=== PATIENT | female | born 1960 | race Caucasian/White ===

== ENCOUNTER 2020-06-22 13:34 | Emergency (ER) | payer OTHER, SELFPAY ==
--- NOTE | ~2020-06-22 | XR_ITS ---
EXAMINATION: XR elbow LT min 3V EXAM DATE: 06/22/2020 14:01 INDICATION: Initial encounter following injury, with pain of the left elbow. TECHNIQUE: Frontal, lateral, oblique projections left elbow. There is no prior study for comparison . FINDINGS: There is acute closed posttraumatic supracondylar fracture with over 1 cm of displacement. No evidence of dislocation at the elbow joint. No evidence of radial or ulnar fractures. IMPRESSION: Acute left supracondylar fracture with displacement. Reviewed, dictated and finalized at location A. [employer] R[employer] CLERK
[2020-06-22 13:33] VITALS: BP 135/106; PULSE 93; RESP 22; TEMP 36.6; O2SAT 100
--- NOTE | 2020-06-22 14:04 | ED.FALL ---
HPI - Fall General Chief Complaint: Fall <Danya Cooley PA-C - Last Filed: 06/22/20 16:02> Stated Complaint: FALL/L ELBOW PAIN <Danya Cooley PA-C - Last Filed: 06/22/20 16:02> Time Seen by Provider: 06/22/20 13:43 <Danya Cooley PA-C - Last Filed: 06/22/20 16:02> Source: patient and family <Danya Cooley PA-C - Last Filed: 06/22/20 16:02> Mode of arrival: EMS <Danya Cooley PA-C - Last Filed: 06/22/20 16:02> Limitations: no limitations <Danya Cooley PA-C - Last Filed: 06/22/20 16:02> History of Present Illness HPI Narrative: This is a 60-year-old female that presents the emergency department after a fall 4 days ago with left elbow pain and swelling. Reports she was coming back from the restroom and tripped. Reports landing on the left elbow. Denies hitting her head or loss of consciousness. 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 Denies prodromal symptoms, other injuries, or numbness. <Danya Cooley PA-C - Last Filed: 06/22/20 16:02> Related Data Allergies/Adverse Reactions: Allergies Allergy/AdvReac Type Severity Reaction Status Date / Time No Known Allergies Allergy Verified 06/22/20 15:06 <Danya Cooley PA-C - Last Filed: 06/22/20 16:02> Review of Systems Review of Systems: Narrative: CONSTITUTIONAL: Denies fever MUSCULOSKELETAL: Reports joint pain, and myalgia. NEUROLOGIC: Denies numbness <Danya Cooley PA-C - Last Filed: 06/22/20 16:02> All systems reviewed & are unremarkable except as noted in HPI and below <Danya Cooley PA-C - Last Filed: 06/22/20 16:02> [facility] Past Medical History Medical History: Medical History (Updated 06/22/20 @ 16:00 by Danya Cooley PA-C) History of depression History of gastroesophageal reflux (GERD) History of Fillmore's disease History of hypertension <Danya Cooley PA-C - Last Filed: 06/22/20 16:02> Social History Social History: Social History (Updated 06/22/20 @ 14:09 by Danya Cooley PA-C) Alcohol intake: current <Danya Cooley PA-C - Last Filed: 06/22/20 16:02> Exam Narrative: Exam Narrative: GENERAL: Well-appearing, well-nourished, and in no acute distress. HEAD: Normocephalic, atraumatic. EYES: PERRLA and EOMI. ENT: Nares clear, no rhinorrhea or epistaxis. Mucous membranes moist. Oropharynx without tonsillar hypertrophy exudate or other lesions. Bilateral TMs pearly tompkins non-bulging NECK: Supple. No adenopathy or masses. No midline cervical spine tenderness CHEST: Clear to auscultation. No respiratory distress. No wheezes rales or rhonchi HEART: Regular rate and rhythm. No murmur heard. Normal peripheral pulses. BACK: No midline thoracic or lumbar spine tenderness EXTREMITIES: Normal range of motion, except decreased range of motion in the left elbow. Moderate edema and bruising to the left elbow. Normal sensation. Normal radial pulses SKIN: Warm, dry, no rash. NEURO: No focal deficits. Alert and oriented x3. Cranial nerves II through XII grossly intact PSYCH: Normal mood and affect <Danya Cooley PA-C - Last Filed: 06/22/20 16:02> Course ASSISTANT BASEBALL COACH/PA Physician Supervision For this patient encounter, I reviewed the ASSISTANT BASEBALL COACH or PA documentation, treatment plan, and medical decision making; and I had [id number] time with this patient. <Holly Mullins MD - Last Filed: 06/22/20 16:50> Consultations Consultation #1: Discussed with Dr. Wagner, who recommends applying splint and he will follow up with the patient. <Holly Mullins MD - Last Filed: 06/22/20 16:50> Date: 06/22/20 <Holly Mullins MD - Last Filed: 06/22/20 16:50> Time: 15:10 <Holly Mullins MD - Last Filed: 06/22/20 16:50> Vital Signs Vital signs: Vital Signs Temperature 36.6 C 06/22/20 13:33 Pulse Rate 93 06/22/20 13:33 Respiratory Rate 22 H 06/22/20 13:33 Blood Pressure 135/106 H 06/22/20 13:33 Pulse O
[2020-06-22 16:13] VITALS: BP 121/99; PULSE 78; RESP 16; O2SAT 99
== END 2020-06-22 16:14 | disposition home or self-care (01) ==
PROVIDERS: Emergency Provider Emergency Medicine; PCP Psychiatry & Neurology Neurology
DX: S42.412A Displaced simple supracondylar fracture without intercondylar fracture of left humerus, initial encounter for closed fracture (principal); F32.9 Major depressive disorder, single episode, unspecified; K21.9 Gastro-esophageal reflux disease without esophagitis; G10 Huntington's disease; I10 Essential (primary) hypertension; W01.0XXA Fall on same level from slipping, tripping and stumbling without subsequent striking against object, initial encounter
CPT/HCPCS: 29105; 73080; 96365; 99284; J0131

== ENCOUNTER 2020-11-17 11:57 | Emergency (ER) | payer OTHER, SELFPAY ==
[2020-11-17] VITALS (17 sets, daily range): BP systolic 127–156; BP diastolic 65–110; PULSE 66–80; RESP 13–20; TEMP 36.7; O2SAT 97–99
--- NOTE | ~2020-11-17 | CT_ITS ---
EXAMINATION: CT lumbar spine wo john EXAM DATE: 11/17/2020 14:49 INDICATION: Age-indeterminate compression fracture on x-ray. TECHNIQUE: Spiral CT lumbar spine was performed without contrast. Axial, coronal and sagittal images of the lumbar spine were reviewed. The dose-length product (DLP) for this examination was 355.62 mGy- cm. The exposure was tailored according to patient size (auto mA exposure control), and iterative re construction (ASIR) was used as additional dose reduction technique. There is no prior study for yomaira dawkins. FINDINGS: There is mild to moderate anterior wedging of L2, a chronic burst fracture (mild loss of the posterio r vertebral body height as well). Only the inferior margin of T11 was imaged, is unremarkable. Mild t o moderate lumbar facet arthropathy. Mild to moderate lower lumbar neural foraminal stenosis. Only mi ld central canal stenosis. Sacroiliac joints are intact. There is no evidence of acute lumbar fractur e. There is no disc space widening or traumatic vertebral body subluxation suspected. Paraspinal so ft tissue is unremarkable. A detailed level by level evaluation of spondylosis can be added as addend um if requested. IMPRESSION: 1. L2 chronic mild to moderate burst fracture. 2. Mild to moderate lumbar spondylosis. 3. T11 not imaged. Reviewed, dictated and finalized at location A.
--- NOTE | ~2020-11-17 | XR_ITS ---
XR lumbar spine min 4V 11/17/2020 14:14 Indication: Low back pain Procedure: 5 views lumbar spine Comparison: No prior studies for comparison. Findings: There is an age-indeterminate superior endplate compression fracture of L2 with approximate ly 30% loss of vertebral body height. There is mild superior endplate compression fracture of T11 wit h approximately 10% loss of vertebral body height. There is mild levoscoliosis. No spondylolisthesis. There is mild multilevel disc narrowing. There is mild lower lumbar facet hypertrophy. Impression: 1: Age-indeterminate superior plate compression fractures of T11 and L2. 2: Mild lumbar spondylosis with levoscoliosis. Reviewed, dictated and finalized at location B. Impression: 1: Age-indeterminate superior plate compression fractures of T11 and L2. 2: Mild lumbar spondylosis with levoscoliosis.
--- NOTE | 2020-11-17 13:50 | ED.BACK ---
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 Complains of atraumatic low back pain for several days notes that she was recently able to graduate from a wheelchair and start doing some walking and therapy and this was shortly before her back started hurting She does not have a fever, she does not have any urinary symptoms, she does not have any bowel or bladder symptoms, she is not have any new numbness or worsening weakness Related Data Home Medications Medication Instructions Recorded Confirmed citalopram 20 mg PO DAILY 11/17/20 potassium chloride 20 meq PO DAILY 11/17/20 propranolol 80 mg PO DAILY 11/17/20 Allergies Allergy/AdvReac Type Severity Reaction Status Date / Time No Known Allergies Allergy Verified 09/28/20 13:03 Review of Systems Review of Systems: All systems reviewed & are unremarkable except as noted in HPI and below Constitutional: Constitutional: Reports no additional constitutional complaints, Denies chills, Reports fatigue, Denies fever(s), Denies headache(s) and Reports weakness Eyes: Eyes: Reports no additional eye complaints and Denies change in vision ENT: Denies headache(s) and Denies sore throat Cardiovascular: Cardiovascular: Denies chest pain and Denies dyspnea Gastrointestinal: Gastrointestinal: Denies vomiting Genitourinary: Genitourinary: Denies urinary frequency, Denies dysuria and Denies urinary incontinence Musculoskeletal: Musculoskeletal: Reports back pain, Reports myalgias, Denies deformity, Denies arthralgias, Denies joint swelling, Reports muscle cramps and Denies numbness Integumentary/Breasts: Skin/Breast: Denies rash and Denies wounds Neurologic: Denies headache(s), Denies focal weakness, Denies numbness and Reports weakness Psychiatric: Psychiatric: Reports no additional psychiatric complaints Endocrine: Endocrine: Reports no additional endocrine complaints Hematologic/Lymphatic: Hematologic/Lymphatic: Reports no additional hematologic/lymphatic complaints Allergic/Immunologic: Allergic/Immunologic: Reports no additional allergic/immunologic complaints PMFSH Past Medical History Medical History History of depression History of gastroesophageal reflux (GERD) History of Linden's disease History of hypertension Linden's disease Left supracondylar humerus fracture Family History Family History Other Linden's disease Social History Social History Smoking packs per day: 0.65 Smoking cigarettes per day: 13.0 Years smoked: 40 Smoking pack-years: 26.00 Tobacco type: cigarettes Alcohol intake: current Drinks per week: 40 Substance use: never Gender identity (if verbalized by the patient): Female Exam Const: General: cooperative, no acute distress and alert Orientation/consciousness: patient oriented x3 (alert) HENMT: Head: normal to inspection, normocephalic and atraumatic Ears: external ears normal General nose exam: no epistaxis Eyes: Conjunctivae: conjunctivae normal EOM: EOMs intact bilaterally Neck: Neck: normal visual inspection, supple and no JVD Resp: Effort & Inspection: normal respiratory effort and not labored Auscultation: other (BS =) GI: GI Palp: Yes Soft to palpation and No Tenderness to palpation present (GI) Back/Spine/Pelvis: Back: no CVA tenderness Other: She has mild lumbar paraspinal muscle tenderness and some tenderness in the SI joints bilaterally, very little discomfort with palpation in the uuper lumbar midline, straight leg raise on the right is negative straight leg raise on t
[2020-11-17] MEDS: KETOROLAC (*BKC) 60 MG/2 ML VIAL IM (14:06)
[2020-11-17] MEDS: CYCLOBENZAPRINE HCL 10 MG TABLET PO (14:06)
== END 2020-11-17 16:12 | disposition home or self-care (01) ==
PROVIDERS: Emergency Provider Emergency Medicine
DX: M54.5 Low back pain (principal); M48.56XA Collapsed vertebra, not elsewhere classified, lumbar region, initial encounter for fracture; G10 Huntington's disease; K21.9 Gastro-esophageal reflux disease without esophagitis; I10 Essential (primary) hypertension; F32.9 Major depressive disorder, single episode, unspecified; F17.210 Nicotine dependence, cigarettes, uncomplicated; M47.816 Spondylosis without myelopathy or radiculopathy, lumbar region
CPT/HCPCS: 72110; 72131; 96372; 99284; A9270; J1885

== ENCOUNTER 2022-11-29 02:07 | Emergency (ER) | payer OTHER, SELFPAY ==
--- NOTE | ~2022-11-29 | XR_ITS ---
Left Shoulder Technique: AP and scapular Y views were obtained. Clinical History: Pain Findings: There is a minimally displaced fracture of the distal clavicle. No other fracture or disloc ation seen. The glenohumeral and acromioclavicular joint spaces are preserved. Soft tissues are unrem arkable. Impression: Minimally displaced fracture of the distal left clavicle. Reviewed, dictated and finalized at location . Impression: Minimally displaced fracture of the distal left clavicle.
[2022-11-29 02:17] VITALS: BP 155/106; PULSE 63; RESP 18; TEMP 36.7; O2SAT 97
[2022-11-29] MEDS: ACETAMINOPHEN 500 MG TABLET 1000 MG PO (03:30)
[2022-11-29] MEDS: methocarbamoL 750 MG TABLET PO (03:30)
[2022-11-29] MEDS: IBUPROFEN 400 MG TABLET 800 MG PO (03:31)
--- NOTE | 2022-11-29 05:31 | ED.GENADULT ---
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 patient was attempting to get a bed when she fell off the bed and landed on her left shoulder. She then had significant pain. This prompted her to bring her to the emergency department. No head trauma. No blood thinners. No other injuries. Related Data Home Medications Medication Instructions Recorded Confirmed citalopram 20 mg tablet 20 mg PO DAILY 11/17/20 potassium chloride 20 mEq 20 meq PO DAILY 11/17/20 tablet,extended release propranolol 80 mg capsule,24 80 mg PO DAILY 11/17/20 11/29/22 hr,extended release pantoprazole 40 mg tablet,delayed mg PO 11/29/22 release propranolol 80 mg capsule,24 mg PO 11/29/22 hr,extended release risperidone 0.5 mg tablet mg 11/29/22 venlafaxine 150 mg mg PO 11/29/22 capsule,extended release 24 hr Allergies Allergy/AdvReac Type Severity Reaction Status Date / Time No Known Allergies Allergy Verified 11/29/22 02:59 [facility] Past Medical History Medical History History of depression History of gastroesophageal reflux (GERD) History of Skamania's disease History of hypertension Skamania's disease Left supracondylar humerus fracture Family History Family History Other Usha's disease Social History Social History Smoking packs per day: 0.65 Smoking cigarettes per day: 13.0 Years smoked: 40 Smoking pack-years: 26.00 Tobacco type: cigarettes Alcohol intake: current Drinks per week: 40 Substance use: never Gender identity (if verbalized by the patient): Female Exam Narrative: APPEARANCE: chorea baseline Head: atraumatic. EYES: EOMI, NOSE: Atraumatic NECK: Trachea midline RESPIRATORY: No increased rate of breathing CARDIOVASCULAR: RRR, ABDOMINAL: Non-distended MUSCULOSKELETAl: tenderness and bruising over the lateral clavicle on the left NEURO: Alert. Moving 4/4 extremities SKIN:: Warm, dry. 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 -DDX includes but is not limited to: MSK, clavicle fracture, humerus fracture -Co-morbidities complicating care: Usha's chorea -Social determinants of health: patient is disabled, lives with her -Hx from independent Sources: at bedside -Discussion of Management/Consultants: none -Independent interpretation of studies: x-ray showed a comminuted fracture of the distal clavicle on the left. Dx tests considered but not ordered: None -Procedures: none -Interventions: Motrin, Tylenol, Robaxin -Shared decision making / Disposition: Patient was placed in a sling. patient will be discharged with orthopedic follow-up. -RX Vital Signs Vital Signs: Vital Signs Temperature 98.1 F 11/29/22 02:17 Pulse Rate 63 11/29/22 02:17 Respiratory Rate 18 11/29/22 02:17 Blood Pressure 155/1
== END 2022-11-29 05:54 | disposition home or self-care (01) ==
PROVIDERS: Emergency Provider Emergency Medicine
DX: G10 Huntington's disease (principal); S42.002A Fracture of unspecified part of left clavicle, initial encounter for closed fracture; W06.XXXA Fall from bed, initial encounter
CPT/HCPCS: 73030; 99283; A4565; A9270

== ENCOUNTER 2023-05-19 01:26 | Emergency (ER) | payer MEDICARE, SELFPAY ==
--- NOTE | ~2023-05-19 | XR_ITS ---
XR wrist RT min 3V DATE: 05/19/2023 01:57 INDICATION: Fall. Injury. TECHNIQUE: 3 views COMPARISON: None FINDINGS: There is diffuse osteopenia. There is prominent soft tissue swelling at the wrist. There is a minimally displaced mildly comminuted fracture of the distal radius without apparent exten emma to the articular surface. There is dorsal inclination of the distal radial articular surface. The distal ulna is intact. Radiocarpal alignment is preserved. Osteoarthritic change at the triscaphe and first carpometacarpal joints. IMPRESSION: Minimally displaced mildly comminuted distal radial fracture with dorsal inclination of d istal radial articular surface, prominent right wrist soft tissue swelling Reviewed, dictated and finalized at location A. IMPRESSION: Minimally displaced mildly comminuted distal radial fracture with d orsal inclination of distal radial articular surface, prominent right wrist sof t tissue swelling
[2023-05-19 01:26] VITALS: BP 148/92; PULSE 81; RESP 20; TEMP 36.7; O2SAT 95
[2023-05-19 01:47] VITALS: PULSE 93; RESP 24
--- NOTE | 2023-05-19 01:56 | ED.FALL ---
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 She says that she falls all the time with her Dwale's disease. Did not strike her head or lose consciousness. She landed on outstretched right hand has been having pain in her right wrist ever since. Denies any other injury or pain. All other symptoms and complaints are negative as per ROS. Related Data Home Medications Medication Instructions Recorded Confirmed propranolol 80 mg capsule,24 80 mg PO DAILY 11/17/20 01/31/23 hr,extended release pantoprazole 40 mg tablet,delayed mg PO 11/29/22 01/31/23 release propranolol 80 mg capsule,24 mg PO 11/29/22 01/31/23 hr,extended release risperidone 0.5 mg tablet mg 11/29/22 01/31/23 venlafaxine 150 mg mg PO 11/29/22 01/31/23 capsule,extended release 24 hr Allergies Allergy/AdvReac Type Severity Reaction Status Date / Time No Known Allergies Allergy Verified 05/19/23 01:35 Review of Systems Review of Systems: All systems reviewed & are unremarkable except as noted in HPI and below PMFSH Past Medical History Medical History Closed fracture of distal clavicle (~11/29/22) Lt History of depression History of gastroesophageal reflux (GERD) History of Dwale's disease History of hypertension Dwale's disease Left supracondylar humerus fracture (~2020) Low sodium levels Hospitalized for 12 days Family History Family History Other Usha's disease Social History Social History Smoking packs per day: 1 Smoking cigarettes per day: 20.0 Years smoked: 40 Smoking pack-years: 40.00 Smoking status: Current every day smoker Tobacco type: cigarettes Alcohol intake: current Drinks per week: 40 Substance use: never Lack of Transportation: No Lack of Food: Never True Current Housing: I Have Housing Concerned About Future Housing: No Difficulty Paying Gas/Electric Bills: No Difficulty Paying for Meds: No Currently Unemployed: No Education: High School Diploma/GED Difficulty w/ Childcare or Family Care: No Gender identity (if verbalized by the patient): Female Exam Narrative: Constitutional: Generally well appearing, no acute distress Head: Atraumatic, no deformities. Eyes: Pupils equal, round, and reactive to light. Neck: Supple, no tracheal deviation, no JVD. ENMT: Mucous membranes moist Cardiovascular: S1, S2 auscultated. No murmurs, rubs, or gallops. No S3/S4. Normal Distal pulses. No peripheral edema. Respiratory: Lung sounds equal. No wheezes, rales, or rhonchi. Gastrointestinal: Abdomen was soft and non-tender. Non-distended. No rebound or guarding. Genitourinary: Deferred Musculoskeletal: Normal muscle tone and bulk. No trauma or deformities over extremities, back, trunk apart from right wrist which shows some swelling with hematoma over the right wrist and tenderness over the radial head without any obvious large deformity. Distal pulses intact. Neurovascular intact distally. Skin: No rashes. Neurological: Strength 5/5 in extremities. Cranial nerves I-XII grossly intact. Distal sensation intact. Mental Status: Awake, alert and oriented x3. Follows commands Course Vital Signs Vital signs: Vital Signs Temperature 36.7 C 05/19/23 01:26 Pulse Rate 81 05/19/23 01:26 Respiratory Rate 20 05/19/23 01:26 Blood Pressure 148/92 H 05/19/23 01:26 Pulse Oximetry 95 05/19/23 01:26 Oxygen Delivery Room Air 05/19/23 01:26 Temperature 36.7 C 05/19/23 01:26 Pulse Rate 81 05/19/23
[2023-05-19 02:00] VITALS: PULSE 84; RESP 27
== END 2023-05-19 02:33 | disposition home or self-care (01) ==
PROVIDERS: Emergency Provider Emergency Medicine
DX: S52.501A Unspecified fracture of the lower end of right radius, initial encounter for closed fracture (principal); I10 Essential (primary) hypertension; F17.210 Nicotine dependence, cigarettes, uncomplicated; W19.XXXA Unspecified fall, initial encounter
CPT/HCPCS: 29125; 73110; 99284